=== PATIENT | male | born 1945 | race Caucasian/White ===

== ENCOUNTER 2019-02-02 10:18 | Day surgery (SDC) | payer OTHER | END 2019-02-02 15:40 | disposition home or self-care (01) | LOC: AMB-ENDOS 10:18 | DX: D12.4 Benign neoplasm of descending colon (principal); K64.1 Second degree hemorrhoids; Z12.11 Encounter for screening for malignant neoplasm of colon ==

== ENCOUNTER 2020-12-19 09:00 | Day surgery (SDC) | payer OTHER | END 2020-12-19 16:00 | disposition home or self-care (01) | LOC: AMB-ENDOS 09:00 | PROVIDERS: ATTEND Colon & Rectal Surgery | DX: K57.32 Diverticulitis of large intestine without perforation or abscess without bleeding (principal); Z20.822 Contact with and (suspected) exposure to COVID-19; Z12.11 Encounter for screening for malignant neoplasm of colon ==